=== PATIENT | female | born 1955 | race African-American/Black ===

== ENCOUNTER 2022-06-21 10:00 | Emergency (ER) | payer MEDICARE, OTHER ==
[~2022-06-21] VITALS: Ht 157.5 cm; Wt 69.0 kg
[2022-06-21] MEDS ORDERED: ASPIRIN 81MG TABLET PO ONE (10:15)
[2022-06-21 10:38] LABS: BASOPHILS % 0.4 % (0.0-2.0); EOSINOPHILS % 4.1 % (0.0-5.0); HEMATOCRIT. 40.5 % (36.0-48.0); HEMOGLOBIN. 13.5 g/dL (12.0-16.0); LYMPHOCYTES % 28.4 % (20.0-50.0); MEAN CORPUSCULAR HEMOGLOBIN 30.8 pg (28.0-32.0); MEAN CORPUSCULAR VOLUME 92.5 fL (81.0-99.0); MEAN PLATELET VOLUME 7.9 fl (7.4-10.4); NEUTROPHILS % 61.1 % (40.0-76.0); PLATELET 422 x1000/uL (130-400); RED BLOOD CELL COUNT 4.38 mill/uL (4.2-5.4); RED CELL DISTRIBUTION WIDTH 14.9 % (11.6-14.6)
[2022-06-21 10:51] LABS: CHLORIDE 104 mEq/L (98-107)
[2022-06-21] MEDS ORDERED: POTASSIUM CHLORIDE 20MEQ TABLET SR PO NR (12:45)
[2022-06-21 15:56] VITALS: BP 141/85
== END 2022-06-21 15:56 | disposition home or self-care (01) ==
LOC: ER 11:08
DX: J06.9 Acute upper respiratory infection, unspecified (principal); E11.9 Type 2 diabetes mellitus without complications; E78.00 Pure hypercholesterolemia, unspecified; I10 Essential (primary) hypertension; E87.6 Hypokalemia
CPT/HCPCS: 36415; 71045; 80053; 83880; 84484; 85025; 93005; 99285